=== PATIENT | male | born 1990 | race Caucasian/White ===

== ENCOUNTER 2021-10-24 10:39 | Emergency (ER) | payer BC, SELFPAY ==
--- NOTE | ~2021-10-24 | XR_ITS ---
EXAMINATION: XR TIBIA AND FIBULA, LEFT CLINICAL INFORMATION: Rule out foreign body. COMPARISON: None TECHNIQUE: AP and lateral views of the left tibia and fibula were obtained. An indicator arrow points to the calf at the level of the mid diaphysis of the fibula. FINDINGS: The bones and soft tissues are normal. No fracture. No osseous lesions. No radiopaque foreign body. XR/XR tibia fibula LT 2V IMPRESSION: Unremarkable left tibia and fibula.
[2021-10-24 10:56] VITALS: BP 148/79; PULSE 66; RESP 16; TEMP 37.1; O2SAT 98; BMI 29.9
[2021-10-24] MEDS: Lidocaine HCl 1 % MPF 5 ML VIAL SUBCUT (13:18)
--- NOTE | 2021-10-24 14:22 | ED_ITS ---
HPI - Skin/Abscess/Foreign Bdy General Chief complaint: Skin/Abscess/Foreign Body Stated complaint: fb in l batista Time Seen by Provider: 10/24/21 11:15 Source: patient Mode of arrival: ambulatory History of Present Illness HPI narrative: 31-year-old male without history of diabetes presents with having injured the left frontal his leg over the weekend on a wooden bench, noted that it became erythematous and began draining pus and states he was able to remove a small piece of foreign material but is concerned that additional would has remained. Patient received his tetanus at the urgent care prior to his arrival here and denies any fevers or chills. Related Data Home Medications Medication Instructions Recorded Confirmed No Known Home Meds 10/24/21 10/24/21 Allergies Allergy/AdvReac Type Severity Reaction Status Date / Time No Known Allergies Allergy Verified 10/24/21 10:56 Review of Systems Review of Systems: Pertinent positives and negatives as stated in HPI 10 point review of systems is otherwise negative. PMFSH Past Medical History Source: nursing notes reviewed Social History Social History Advance Directives: No Advance Directives Information Provided: No Physical Exam Vital Signs: Vital Signs: Last Vital Signs Temp 98.7 F 10/24/21 10:56 Pulse 66 10/24/21 10:56 Resp 16 10/24/21 10:56 BP 148/79 H 10/24/21 10:56 Pulse Ox 98 10/24/21 10:56 O2 Del Method 10/24/21 10:56 BMI result Body Mass Index 29.9 VITAL SIGNS: Reviewed. GENERAL: Well developed, well nourished, in no acute distress. HEAD: Normocephalic/atraumatic EYES: PERRLA, EOMI EARS: Ext canals without abnormality OROPHARYNX: no oral lesions noted, posterior pharynx clear LUNGS: Normal breath sounds. No adventitious sounds or accessory muscle use. SpO2<98> CARDIOVASCULAR: Regular rate and rhythm without noted murmurs ABDOMEN: Soft, non-tender, non-distended with bowel sounds. MUSCULOSKELETAL: No tenderness, deformities, or effusions noted on gross inspection. EXTREMITIES: No cyanosis, clubbing or edema; LEFT LOWER EXTREMITY: 3 cm erythematous area to the mid anterior tibia that is spontaneously draining purulence material. SKIN: Inspection of the skin reveals no rashes NEUROLOGIC: Alert and oriented x 4. Strength and sensation to light touch were grossly intact x 4. Course Course Course Narrative: 31-year-old male with history and clinical presentation consistent with foreign body to left lower extremity, patient received topical anesthetic and wound was significantly irrigated, but no foreign body was recovered and on imaging studies no foreign body was identified. Patient was encouraged to continue with warm compresses, a compression bandage was put in place and he was encouraged to return if things worsened. Discharge Plan Discharge Clinical Impression: Infected wound Patient Disposition: Home, Self-Care Instructions: Abscess (ED), Warm Compress or Soak (ED) Additional Instructions: 1. Recommend [id number] Tylenol/ibuprofen as needed for pain control. 2. Warm compresses to the area, 3 to 4 times a day and attempt to manually express any residual infection. 3. Follow-up with the primary care provider in the next 1-2 days for re- evaluation. Return to the ER for worsening symptoms. Prescriptions: No Action No Known Home Meds Referrals: Loyd Maza MD [Primary Care Provider] -
== END 2021-10-24 14:32 | disposition home or self-care (01) ==
PROVIDERS: Emergency Provider Student in an Organized Health Care Education/Training Program; PCP Internal Medicine
DX: L03.116 Cellulitis of left lower limb (principal); M79.605 Pain in left leg
CPT/HCPCS: 73590; 99282; 99284